=== PATIENT | female | born 1990 | race Two or more races ===

== ENCOUNTER 2016-10-27 20:42 | Outpatient (CLI) | payer OTHER ==
[2016-10-27 21:13] VITALS: BMI 29.2
== END 2016-10-27 21:40 | disposition home or self-care (01) ==
LOC: FBCOUT 20:42 → FBC 20:42 → FBCOUT 21:40
PROVIDERS: ATTEND Family Medicine
DX: O46.92 Antepartum hemorrhage, unspecified, second trimester (principal); Z3A.26 26 weeks gestation of pregnancy